=== PATIENT | female | born 1950 | race Caucasian/White ===

== ENCOUNTER 2019-01-10 09:33 | Inpatient (IN) | payer OTHER ==
[2019-01-10] MEDS ORDERED: NS 1,000 ML IV ONE ×3 (09:46→12:00)
--- NOTE | 2019-01-10 09:51 | EDPHY ---
H & P Time Seen by Provider: 01/10/19 09:35 HPI/ROS: CHIEF COMPLAINT: Altered mental status HISTORY OF PRESENT ILLNESS: 68-year-old female presents to the emergency department by ambulance with altered mental status. The patient is here visiting from [place], [place] with her sister who is here for a conference since Monday and the sister noted yesterday that she was not eating much and acting confused. The patient is a known insulin-dependent diabetic since the age of 22. The patient is complaining of feeling nauseous and was feeling chilled. The sister noted that she was confused yesterday and this continued this morning. No reports of vomiting or diarrhea. No reported fever. Patient denies pain in her chest or difficulty breathing. She is feeling chilled. Denies abdominal pain. No reported trauma. Sister also notes that 4 months ago she had an episode where she went to the hospital where "both sides of her brain were not communicating".. No reports of stroke. REVIEW OF SYSTEMS: Constitutional: No fever, no chills. Eyes: No double or blurry vision. ENT: No sore throat. Respiratory: No cough, no shortness of breath. Cardiac: No chest pain. Gastrointestinal: Nausea. No abdominal pain, vomiting or diarrhea. Genitourinary: No dysuria. Musculoskeletal: No neck or back pain. Skin: No rashes. Neurological: No headache. (Kathie Lopes) Past Medical/Surgical History: Insulin dependent diabetic since age 22 (Moses,Kathie M) Social History: From [place], [place] (Moses,Kathie M) Physical Exam: General Appearance: Lethargic. Slow to answer questions. She is able to follow commands. Confused. Eyes: Pupils equal and round. Extraocular motions are all intact. ENT: Mouth: Mucous membranes moist. Respiratory: No wheezing, rhonchi, or rales, lungs are clear to auscultation. Cardiovascular: Regular rate and rhythm. Gastrointestinal: Abdomen is soft and nontender, no masses, no rebound or guarding, bowel sounds normal. Neurological: Alert and oriented x 1, cranial nerves II through XII grossly intact Skin: Warm and dry, no rashes. Musculoskeletal: Nontender to palpate along the cervical, thoracic or lumbar spine. Neck is supple. Extremities: Full range of motion and no peripheral edema. Psychiatric: Patient is oriented X 1, there is no agitation. (Kathie Lopes) Constitutional: Initial Vital Signs Temperature (C) 36.6 C 01/10/19 09:35 Heart Rate 89 01/10/19 09:35 Respiratory Rate 20 01/10/19 09:35 Blood Pressure 128/60 H 01/10/19 09:35 O2 Sat (%) 97 01/10/19 09:35 O2 Delivery Mode Room Air Allergies/Adverse Reactions: No Known Allergies Allergy (Unverified 01/10/19 09:46) Home Medications: Medication Instructions Recorded Acetaminophen [Tylenol 325mg (*)] 650 mg PO Q4 PRN 01/10/19 Alendronate Sodium [Fosamax 70 MG 70 mg PO Q7D@07 01/10/19 (*)] Calcium Carb W/Vit D [Calcium Carb 500 mg PO BID 01/10/19 W/Vit D 500/200 (*)] Escitalopram Oxalate [Lexapro] 5 mg PO DAILY 01/10/19 Insulin Glargine [Lantus] 15 unit SC DAILY 01/10/19 Insulin Lispro [humALOG LISPRO 100 3 unit SC TIDMEAL 01/10/19 units/ml (*)] Lactulose [Enulose] 20 gm PO TID 01/10/19 Levothyroxine [Synthroid 112 mcg 112 mcg PO DAILY06 01/10/19 (*)] Lisinopril [Zestril 5 mg (*)] 5 mg PO DAILY 01/10/19 Memantine HCl [Namenda 5 mg (*)] 5 mg PO BID 01/10/19 levETIRAcetam [Keppra 500 mg (*)] 500 mg PO BID 01/10/19 Medical Decision Making - Diagnostics EKG Interpretation: EKG: Complete interpretation has been separately recorded in the [facility] archive. Summary impression: Sinus rhythm, rate 80, nonspecific ST T wave changes noted. No QRS widening or tachycardia noted (Alexx Childs) Imaging Results: Imaging Impressions Head CT 01/10/19 10:29 Impression: Mild age-related features, with no acute intracranial abnormality identified on this unenhanced CT evaluation. If there is further clinical concern regarding the patient's symptoms, MR imaging is suggested, if not otherwise contraindicated. Findings were discussed with Alexx Childs MD at 12:03, on 01/10/2019. ED Course/Re-evaluation: 68-year-old female presents to the emergency department with altered mental status. The patient has a history of insulin-dependent diabetes in is not clear the last time she took a medication. Vital signs are stable. She is afebrile. Not tachycardic. Not hypotensive. No signs of sepsis. I-STAT reveals glucose of over 700, CO2 of 9, sodium of 125, potassium 6.1 The case was discussed with Dr. Childs, secondary supervising physician, who also evaluated the patient and or laboratory studies. The patient will be admitted to the ICU. Patient's sister, Maris, was at bedside. She understands the patient will be admitted to the ICU. She does also states that the patient has DKA "multiple times" over last few years. (Kathie Lopes) Differential Diagnosis: Altered mental status including but not limited to diabetic ketoacidosis, hyperglycemia, hypoglycemia, infectious process, electrolyte abnormality, head injury and intoxicants. (Kathie Lopes) Critical Care Time: Critical care time exclusive of procedures and exclusive of the PA's time was 45 minutes, performed by myself, Alexx Childs MD. The patient presents to the ED with diabetic ketoacidosis, severe metabolic derangements, acute renal failure and altered mental status. She required aggressive therapy in the emergency department and will require admission to the intensive care unit. (Alexx Childs) Other Provider: Independent physician documentation: I evaluated and participated in the management of the patient. I also evaluated the patient independently. My co-signature indicates that I have reviewed this chart and I agree with the findings and plan of care as documented. My personal H&P findings include: Patient presents to the ED with hyperglycemia and altered mental status. She is currently visiting her sister in the area. It is uncertain if she has used her insulin at all over the past 2 days. The patient is confused and somewhat encephalopathic. She is unable to provide much history. There has been no history of fever, cough or infectious symptoms. Physical exam: General: Frail female, clinically dehydrated, confused Eyes: Pupils equal and round no pallor or injection ENT, Mouth: Co topic, dry mucous membranes Respiratory: Slight tachypnea Cardiovascular: Regular rate and rhythm Gastrointestinal: Abdomen is soft and nontender, no masses, bowel sounds normal Neurological: Alert and oriented x2, 5/5 strength noted all 4 extremities Skin: Warm and dry, no rashes Musculoskeletal: Neck is supple nontender Extremities: symmetrical, full range of motion ED course: Patient arrives in diabetic ketoacidosis with a pH is 7.06 and a glucose over 1000. The patient received the diabetic ketoacidosis protocol in the emergency department. She has received IV fluid rehydration. Patient is also noted to have acute renal failure. She has mild hyperkalemia. There has been no history of a fall or trauma however a noncontrast head CT scan will be ordered in the setting of her altered mental status. The patient will require admission to the intensive care unit. She will be admitted by the hospitalist service. (Alexx Childs) - Data Points Laboratory Results: Laboratory Results 01/10/19 09:35 01/10/19 09:35 01/10/19 01/10/19 01/10/19 10:10 09:44 09:35 WBC RBC Hgb POC Hgb 10.9 gm/dL L gm/dL (12.6-16.3) Hct POC Hct 32 % L % (38-47) MCV MCH MCHC RDW Plt Count MPV Neut % (Auto) Lymph % (Auto) Creek % (Auto) Eos % (Auto) Baso % (Auto) Nucleat RBC Rel Count Absolute Neuts (auto) Absolute Lymphs (auto) Absolute Monos (auto) Absolute Eos (auto) Absolute Basos (auto) Absolute Nucleated RBC Immature Gran % Seg Neutrophils % Band Neutrophils % Lymphocytes % Monocytes % Eosinophils % Basophils % Metamyelocytes % Myelocytes % Promyelocytes % Blast Cells % Immature Gran # Absolute Seg Neuts Absolute Band Neuts Absolute Lymphocytes Absolute Monocytes Absolute Eosinophils Absolute Basophils Absolute Metamyelocyte Absolute Myelocytes Absolute Promyelocytes Absolute Plasma Cells Nucleated RBCs Absolute Blast Cells Plasma Cells % Platelet Estimate Oval Macrocytes Puncture Site VENOUS Patient Temperature 37.0 DEGREES DEGREES VBG pH 7.08 L (7.31-7.42) VBG HCO3 7 mEQ/L L mEQ/L (22-26) VBG Total CO2 7 mEq/L L mEq/L (21-27) VBG O2 Saturation 95 % H % (65-75) VBG Base Excess -21.9 mEq/L L mEq/L (-2.5-2.5) Mixed VBG pCO2 24 mmHg L mmHg (40-44) Mixed VBG pO2 97 mmHG H mmHG (35-40) POC Sodium 125 mEq/L L mEq/L (135-145) Sodium 127 mEq/L L mEq/L (135-145) POC Potassium 6.1 mEq/L H mEq/L (3.3-5.0) Potassium 6.5 mEq/L H* mEq/L (3.5-5.2) POC Chloride 94 mEq/L L mEq/L (97-110) Chloride 90 mEq/L L mEq/L (97-110) Carbon Dioxide 7 mEq/l L* mEq/l (22-31) POC Total CO2 9 mEq/L L* mEq/L (22-31) Anion Gap 30 mEq/L H mEq/L (6-14) POC BUN 70 mg/dL H mg/dL (7-23) BUN 59 mg/dL H mg/dL (7-23) Creatinine 2.5 mg/dL H mg/dL (0.6-1.0) POC Creatinine 2.4 mg/dL H mg/dL (0.6-1.0) Estimated GFR 19 Glucose 1064 mg/dL H* mg/dL (70-100) POC Glucose > 700 mg/dL H* mg/dL (70-100) Calcium 9.2 mg/dL mg/dL (8.5-10.4) Beta-Hydroxybutyrate 12.70 mmol/L H mmol/L (0.02-0.27) 01/10/19 09:35 WBC 9.59 10^3/uL H 10^3/uL (3.80-9.50) RBC 2.87 10^6/uL L 10^6/uL (4.18-5.33) Hgb 9.3 g/dL L g/dL (12.6-16.3) POC Hgb Hct 31.0 % L % (38.0-47.0) POC Hct MCV 108.0 fL H fL (81.5-99.8) MCH 32.4 pg pg (27.9-34.1) MCHC 30.0 g/dL L g/dL (32.4-36.7) RDW 12.7 % % (11.5-15.2) Plt Count 194 10^3/uL 10^3/uL (150-400) MPV 12.0 fL H fL (8.7-11.7) Neut % (Auto) Not Reported Lymph % (Auto) Not Reported Creek % (Auto) Not Reported Eos % (Auto) Not Reported Baso % (Auto) Not Reported Nucleat RBC Rel Count Not Reported Absolute Neuts (auto) Not Reported Absolute Lymphs (auto) Not Reported Absolute Monos (auto) Not Reported Absolute Eos (auto) Not Reported Absolute Basos (auto) Not Reported Absolute Nucleated RBC Not Reported Immature Gran % Not Reported Seg Neutrophils % 78.8 % % Band Neutrophils % 3.0 % % Lymphocytes % 10.1 % % Monocytes % 6.1 % % Eosinophils % 0.0 % % Basophils % 0.0 % % Metamyelocytes % 1.0 % % Myelocytes % 1.0 % % Promyelocytes % 0.0 % % Blast Cells % 0.0 % % Immature Gran # Not Reported Absolute Seg Neuts 7.56 10^3/uL H 10^3/uL (1.70-6.50) Absolute Band Neuts 0.29 10^3/uL 10^3/uL (0.00-0.70) Absolute Lymphocytes 0.97 10^3/uL L 10^3/uL (1.00-3.00) Absolute Monocytes 0.58 10^3/uL 10^3/uL (0.30-0.80) Absolute Eosinophils 0.00 10^3/uL L 10^3/uL (0.03-0.40) Absolute Basophils 0.00 10^3/uL L 10^3/uL (0.02-0.10) Absolute Metamyelocyte 0.10 10^3/mL H 10^3/mL (0.00-0.00) Absolute Myelocytes 0.10 10^3/mL H 10^3/mL (0.00-0.00) Absolute Promyelocytes 0.00 10^3/uL 10^3/uL (0.00-0.00) Absolute Plasma Cells 0.00 10^3/uL 10^3/uL (0.00-0.00) Nucleated RBCs 0 /100 WBC /100 WBC (0-0) Absolute Blast Cells 0.00 10^3/uL 10^3/uL (0.00-0.00) Plasma Cells % 0.0 % % Platelet Estimate ADEQUATE (ADEQ) Oval Macrocytes 1+ H Puncture Site Patient Temperature VBG pH VBG HCO3 VBG Total CO2 VBG O2 Saturation VBG Base Excess Mixed VBG pCO2 Mixed VBG pO2 POC Sodium Sodium POC Potassium Potassium POC Chloride Chloride Carbon Dioxide POC Total CO2 Anion Gap POC BUN BUN Creatinine POC Creatinine Estimated GFR Glucose POC Glucose Calcium Beta-Hydroxybutyrate Medications Given: Heparin Sodium (Porcine) (Heparin Sc Injection) 5,000 unit SC Q8 ANAYA Stop: 07/09/19 13:59 Last Admin: 01/10/19 14:17 Dose: 5,000 unit Sodium Chloride (Ns) 1,000 mls @ 0 mls/hr IV CONT ANAYA PRN Reason: As Directed Stop: 07/09/19 14:59 Last Admin: 01/10/19 15:18 Dose: 1,000 mls Levetiracetam (Keppra (Premix)) 100 mls @ 400 mls/hr IV Q12HRS [facility] Stop: 07/09/19 15:14 Last Admin: 01/10/19 15:17 Dose: 100 mls Discontinued Medications Sodium Chloride (Ns) 1,000 mls @ 0 mls/hr IV EDNOW ONE; Wide Open PRN Reason: Protocol Stop: 01/10/19 09:47 Last Admin: 01/10/19 09:54 Dose: 1,000 mls Insulin Human Regular 100 unit / Miscellaneous Medication 1 ea/ Sodium Chloride 101 mls @ 0 mls/hr IV EDNOW ONE; Per Protocol PRN Reason: Protocol Stop: 01/10/19 10:33 Last Admin: 01/10/19 11:11 Dose: 101 mls Sodium Chloride (Ns) 1,000 mls @ 0 mls/hr IV EDNOW ONE; Wide Open PRN Reason: Protocol Stop: 01/10/19 11:31 Last Admin: 01/10/19 11:34 Dose: 1,000 mls Sodium Chloride (Ns) 1,000 mls @ 1,000 mls/hr IV ONCE ONE Stop: 01/10/19 12:59 Last Admin: 01/10/19 13:56 Dose: Not Given Sodium Chloride (Ns) 500 mls @ 500 mls/hr IV ONCE ONE Stop: 01/10/19 13:59 Last Admin: 01/10/19 13:15 Dose: 500 mls Sodium Chloride (Ns) 500 mls @ 500 mls/hr IV ONCE ONE Stop: 01/10/19 14:59 Last Admin: 01/10/19 14:26 Dose: 500 mls Miscellaneous Information (Message To Rn) 1 ea MISC ONCE ONE Stop: 01/10/19 11:01 Last Admin: 01/10/19 13:56 Dose: Not Given Point of Care Test Results: Chemistry 01/10/19 09:44 POC Sodium 125 mEq/L L mEq/L (135-145) POC Potassium 6.1 mEq/L H mEq/L (3.3-5.0) POC Chloride 94 mEq/L L mEq/L (97-110) POC Total CO2 9 mEq/L L* mEq/L (22-31) POC BUN 70 mg/dL H mg/dL (7-23) POC Creatinine 2.4 mg/dL H mg/dL (0.6-1.0) POC Glucose > 700 mg/dL H* mg/dL (70-100) ISTAT H&H 01/10/19 09:44 POC Hgb 10.9 gm/dL L gm/dL (12.6-16.3) POC Hct 32 % L % (38-47) Departure - Departure Disposition: [facility] Acute Clinical Impression: Hyponatremia, Dehydration Diabetic ketoacidosis Qualifiers: Diabetes mellitus type: type 1 Acute renal failure Qualifiers: Acute renal failure type: unspecified Qualified Code(s): N17.9 - Acute kidney failure, unspecified Condition: Critical
[2019-01-10 09:54] LABS: PLATELET COUNT 194 10^3/uL (150-400)
[2019-01-10] MEDS ORDERED: INSULIN REGULAR HUMAN 100 UNIT, COSIGN. REQUIRED 1 EA in NS 100 ML IV ONE (10:32)
[2019-01-10] MEDS ORDERED: ONDANSETRON DISINTEGRATING 4 MG TAB PO PRN (10:55)
[2019-01-10] MEDS ORDERED: ACETAMINOPHEN 325 MG TAB PO PRN (10:55)
[2019-01-10] MEDS ORDERED: ONDANSETRON 4 MG/2 ML VIAL IVP PRN (10:55)
[2019-01-10] MEDS ORDERED: D10W 1,000 ML IV PRN (11:00)
[2019-01-10] MEDS ORDERED: INSULIN REGULAR HUMAN 100 UNIT in NS 100 ML IV SCH (11:00)
[2019-01-10] MEDS ORDERED: RN:ENTER POTASSIUM ICU PROTOCOL ON WORKLIST MISC ONE (11:00)
--- NOTE | 2019-01-10 11:40 | CPEKG ---
Test Reason : OPEN Blood Pressure : / mmHG Vent. Rate : 080 BPM Atrial Rate : 080 BPM P-R Int : 193 ms QRS Dur : 091 ms QT Int : 388 ms P-R-T Axes : 000 070 031 degrees QTc Int : 448 ms Sinus rhythm Borderline ST depression, inferior leads Confirmed by Alexx Childs ([id number]) on 01/10/2019 11:40:20 AM Referred By: Donald Kolb Confirmed By:Alexx Childs
--- NOTE | 2019-01-10 12:24 | PDGENHP ---
History and Physical - Chief Complaint High blood glucose - History of Present Illness Patient is a 68-year-old female with past medical history of type 1 diabetes and hypertension who presented to the emergency room with concerns of high blood glucose. She is visiting from [facility] and said that about 2 days ago she started developing abdominal pain along with nausea and vomiting. This morning she checked her blood glucose noted was extremely high and had not been taking her insulin which prompted her to come to the emergency room. She says that she has been not able to take anything to eat or drink for 2 days and has been having constant nausea and vomiting. She denied any bloody or black emesis. She denied any diarrhea or black or bloody stools. She denied any fevers, chills. She thinks she last took her insulin yesterday morning. History Information - Allergies/Home Medication List Allergies/Adverse Reactions: No Known Allergies Allergy (Unverified 01/10/19 09:46) Home Medications: Basaglar Kwikpen U-100 01/10/19 [Last Taken Unknown] Novolin 70-30 Flexpen 01/10/19 [Last Taken Unknown] I have personally reviewed and updated: family history, medical history, social history, surgical history - Past Medical History diabetes type 1, hypertension - Surgical History Reports: no pertinent surgical hx - Family History Positive for: non-pertinent - Social History Smoking Status: Never smoked Review of Systems Review of Systems: ROS: 10pt was reviewed & negative except for what was stated in HPI & below Physical Exam Physical Exam: Temp Pulse Resp BP Pulse Ox 36.5 C 78 18 128/61 H 91 L 01/10/19 12:08 01/10/19 12:08 01/10/19 12:08 01/10/19 12:08 01/10/19 12:08 Constitutional: no apparent distress, appears nourished, not in pain Eyes: PERRL, anicteric sclera, EOMI Ears, Nose, Mouth, Throat: moist mucous membranes, hearing normal, ears appear normal, no oral mucosal ulcers Cardiovascular: regular rate and rhythym, no murmur, rub, or gallop, No edema Respiratory: no respiratory distress, no rales or rhonchi, clear to auscultation Gastrointestinal: normoactive bowel sounds, soft, non-tender abdomen, no palpable masses Genitourinary: no bladder fullness, no bladder tenderness Skin: warm, normal color, no rashes or abrasions, no fluctuance, no induration, No mottled Musculoskeletal: full muscle strength, no muscle tenderness, normal joint ROM, no joint effusions, generalized weakness Neurologic: AAOx3 Psychiatric: interacting appropriately, not anxious, not encephalopathic, thought process linear Lymph, Heme, Immunologic: no cervical LAD, no supraclavicular LAD Lab Data & Imaging Review 01/10/19 09:35 01/10/19 09:35 WBC 9.59 10^3/uL (3.80-9.50) H 01/10/19 09:35 RBC 2.87 10^6/uL (4.18-5.33) L 01/10/19 09:35 Hgb 9.3 g/dL (12.6-16.3) L 01/10/19 09:35 POC Hgb 9.2 gm/dL (12.6-16.3) L 01/10/19 11:28 Hct 31.0 % (38.0-47.0) L 01/10/19 09:35 POC Hct 27 % (38-47) L 01/10/19 11:28 MCV 108.0 fL (81.5-99.8) H 01/10/19 09:35 MCH 32.4 pg (27.9-34.1) 01/10/19 09:35 MCHC 30.0 g/dL (32.4-36.7) L 01/10/19 09:35 RDW 12.7 % (11.5-15.2) 01/10/19 09:35 Plt Count 194 10^3/uL (150-400) 01/10/19 09:35 MPV 12.0 fL (8.7-11.7) H 01/10/19 09:35 Neut % (Auto) Not Reported 01/10/19 09:35 Lymph % (Auto) Not Reported 01/10/19 09:35 Thayer % (Auto) Not Reported 01/10/19 09:35 Eos % (Auto) Not Reported 01/10/19 09:35 Baso % (Auto) Not Reported 01/10/19 09:35 Nucleat RBC Rel Count Not Reported 01/10/19 09:35 Absolute Neuts (auto) Not Reported 01/10/19 09:35 Absolute Lymphs (auto) Not Reported 01/10/19 09:35 Absolute Monos (auto) Not Reported 01/10/19 09:35 Absolute Eos (auto) Not Reported 01/10/19 09:35 Absolute Basos (auto) Not Reported 01/10/19 09:35 Absolute Nucleated RBC Not Reported 01/10/19 09:35 Immature Gran % Not Reported 01/10/19 09:35 Seg Neutrophils % 78.8 % 01/10/19 09:35 Band Neutrophils % 3.0 % 01/10/19 09:35 Lymphocytes % 10.1 % 01/10/19 09:35 Monocytes % 6.1 % 01/10/19 09:35 Eosinophils % 0.0 % 01/10/19 09:35 Basophils % 0.0 % 01/10/19 09:35 Metamyelocytes % 1.0 % 01/10/19 09:35 Myelocytes % 1.0 % 01/10/19 09:35 Promyelocytes % 0.0 % 01/10/19 09:35 Blast Cells % 0.0 % 01/10/19 09:35 Immature Gran # Not Reported 01/10/19 09:35 Absolute Seg Neuts 7.56 10^3/uL (1.70-6.50) H 01/10/19 09:35 Absolute Band Neuts 0.29 10^3/uL (0.00-0.70) 01/10/19 09:35 Absolute Lymphocytes 0.97 10^3/uL (1.00-3.00) L 01/10/19 09:35 Absolute Monocytes 0.58 10^3/uL (0.30-0.80) 01/10/19 09:35 Absolute Eosinophils 0.00 10^3/uL (0.03-0.40) L 01/10/19 09:35 Absolute Basophils 0.00 10^3/uL (0.02-0.10) L 01/10/19 09:35 Absolute Metamyelocyte 0.10 10^3/mL (0.00-0.00) H 01/10/19 09:35 Absolute Myelocytes 0.10 10^3/mL (0.00-0.00) H 01/10/19 09:35 Absolute Promyelocytes 0.00 10^3/uL (0.00-0.00) 01/10/19 09:35 Absolute Plasma Cells 0.00 10^3/uL (0.00-0.00) 01/10/19 09:35 Nucleated RBCs 0 /100 WBC (0-0) 01/10/19 09:35 Absolute Blast Cells 0.00 10^3/uL (0.00-0.00) 01/10/19 09:35 Plasma Cells % 0.0 % 01/10/19 09:35 Platelet Estimate ADEQUATE (ADEQ) 01/10/19 09:35 Oval Macrocytes 1+ H 01/10/19 09:35 Puncture Site VENOUS 01/10/19 10:46 Patient Temperature 37.0 DEGREES 01/10/19 10:46 VBG pH 7.06 (7.31-7.42) L 01/10/19 10:46 VBG HCO3 8 mEQ/L (22-26) L 01/10/19 10:46 VBG Total CO2 8 mEq/L (21-27) L 01/10/19 10:46 VBG O2 Saturation 79 % (65-75) H 01/10/19 10:46 VBG Base Excess -21.5 mEq/L (-2.5-2.5) L 01/10/19 10:46 Mixed VBG pCO2 28 mmHg (40-44) L 01/10/19 10:46 Mixed VBG pO2 53 mmHG (35-40) H 01/10/19 10:46 POC Sodium 129 mEq/L (135-145) L 01/10/19 11:28 Sodium 127 mEq/L (135-145) L 01/10/19 09:35 POC Potassium 5.8 mEq/L (3.3-5.0) H 01/10/19 11:28 Potassium 6.5 mEq/L (3.5-5.2) H* 01/10/19 09:35 POC Chloride 100 mEq/L (97-110) 01/10/19 11:28 Chloride 90 mEq/L (97-110) L 01/10/19 09:35 Carbon Dioxide 7 mEq/l (22-31) L* 01/10/19 09:35 POC Total CO2 11 mEq/L (22-31) L 01/10/19 11:28 Anion Gap 30 mEq/L (6-14) H 01/10/19 09:35 POC BUN 60 mg/dL (7-23) H 01/10/19 11:28 BUN 59 mg/dL (7-23) H 01/10/19 09:35 Creatinine 2.5 mg/dL (0.6-1.0) H 01/10/19 09:35 POC Creatinine 2.1 mg/dL (0.6-1.0) H 01/10/19 11:28 Estimated GFR 19 01/10/19 09:35 Glucose 1064 mg/dL (70-100) H* 01/10/19 09:35 POC Glucose > 700 mg/dL (70-100) H* 01/10/19 11:28 Calcium 9.2 mg/dL (8.5-10.4) 01/10/19 09:35 Beta-Hydroxybutyrate 9.12 mmol/L (0.02-0.27) H 01/10/19 10:46 Assessment & Plan Assessment: 68-year-old female with past medical history of type 1 diabetes admitted with diabetic ketoacidosis. Diabetic ketoacidosis (Acute)- pH 7.06 with blood sugar over a 1000 on admission. Beta hydroxybutyrate elevated over 9. -DKA order set -aggressive fluids -insulin drip -repeat ABG -potassium repletion -NPO with sips Acute renal failure (Acute)- likely prerenal azotemia in the setting of DKA and dehydration. Currently getting aggressive intravenous saline. Will repeat renal function in the morning. Hyponatremia (Acute)- pseudohyponatremia in the setting of hyperglycemia. Sodium corrects to normal when adjusted for hyperglycemia. Hypertension- currently normotensive. PRN hydralazine as needed. Type 1 diabetes- currently in diabetic ketoacidosis. Patient takes Novolin and Basaglar but can't remember the doses. AV malformation- per sister patient has an AV malformation. On keppra 500 mg BID. will continue IV keppra 500mg BID. PPX- SCDs, Heparin Fluids- IVNS lytes- per protocol Nutrition - NPO Cor- Full Dispo- ICU for DKA I spent 50 minutes of critical care time on the management of this patient.
[2019-01-10] MEDS ORDERED: NS 500 ML IV ONE ×2 (13:00→14:00)
--- NOTE | 2019-01-10 13:20 | PDMN ---
Medical Necessity Medical necessity: [facility] M130 diabetes: : A-2 days; INPT for hyperglycemia glucose > 1000, beta hydroxybutyrate 12.7, VBG pH 7.08, pt with N/V, abd pain , anticipate > 2 MN ongoing med nec care- further monitoring , eval and tx.
[2019-01-10] MEDS: HEPARIN 5,000 UNIT/0.5 ML INJ SC SCH ×2 (14:17→21:31)
[2019-01-10] MEDS: levETIRAcetam 500MG/NACL 100 ML IV SCH ×2 (15:17→20:29)
[2019-01-10] MEDS: NS 1,000 ML IV SCH ×2 (15:18→18:03)
[2019-01-10] MEDS: D10W 1,000 ML IV SCH (20:29)
[2019-01-11] MEDS: INSULIN GLARGINE 100 UNITS/ML UNIT SC SCH ×2 (00:03→21:04)
[2019-01-11] MEDS: D50W 25 GM/50 ML SYR IVP PRN ×2 (02:42→06:06)
[2019-01-11] MEDS: NS 1,000 ML IV SCH (03:34)
[2019-01-11] MEDS: HEPARIN 5,000 UNIT/0.5 ML INJ SC SCH ×3 (06:06→21:47)
[2019-01-11 06:28] LABS: PLATELET COUNT 160 10^3/uL (150-400)
[2019-01-11] MEDS: INSULIN LISPRO 100 UNIT/ML SC SCH ×3 (10:25→18:36)
[2019-01-11] MEDS ORDERED: LORazepam 2 MG/ML INJ ONE (11:46)
[2019-01-11] MEDS: D10W 1,000 ML IV SCH (11:51)
--- NOTE | 2019-01-11 12:39 | ASMTCMCOM ---
CM Note CM Note Notes: Pt discussed in rounds and Chart reviewed. Pt is a 68year old admitted with Diabetic Ketoacidosis, Hyponatremia and renal failure. Pt was in [place] 2 days ago when she developed nausea, vomiting and some abdominal pain. Pt has some confusion and is pulling tubes today. CM available for needs. PLAN: TBD Date Signed: 01/11/2019 12:38 PM Electronically Signed By:Izabella Bone
[2019-01-11] MEDS ORDERED: LORazepam 2 MG/ML INJ IVP ONE (12:45)
[2019-01-11] MEDS: levETIRAcetam 500MG/NACL 100 ML IV SCH ×2 (12:49→21:46)
--- NOTE | 2019-01-11 14:02 | HOSPPROG ---
Hospitalist Progress Note Assessment/Plan: Assessment: 68-year-old female with past medical history of type 1 diabetes admitted with diabetic ketoacidosis. Diabetic ketoacidosis (Acute)- PH normalized, gap closed, sugars normalized. Patients sister reports hx of being a brittle diabetic. Patient was given long acting overnight and now is intermittently hypoglycemic. -restart D10 -cont SSI -frequent glucose checks. Aphasia- patient with confusion and aphasia this am. Persisted despite normoglycemia and resolution of electrolyte abnormalities. CTH with possible subacute stroke per radiology, who recommends obtaining MRI for further eval of hx of AVM and possible CVA. Acute renal failure (Acute)- likely prerenal azotemia in the setting of DKA and dehydration. responded well to fluids. creatinine trending down. cont IVF and monitor renal function. Hyponatremia (Acute)- pseudohyponatremia in the setting of hyperglycemia. Corrected overnight Hypertension- currently normotensive. PRN hydralazine as needed. Type 1 diabetes-Takes lantus at home. Holding in setting of hypoglycemia. AV malformation- per sister patient has an AV malformation. On keppra 500 mg BID. will continue IV keppra 500mg BID. cont PPX- SCDs, Heparin Fluids- IVNS lytes- per protocol Nutrition - NPO Cor- Full Dispo- SDU for DKA Subjective: No pain, clearly confused. Objective: Vital Signs Temp Pulse Resp BP Pulse Ox 37.4 C 61 20 142/77 H 94 01/11/19 06:00 01/11/19 12:00 01/11/19 12:00 01/11/19 12:00 01/11/19 12:00 Laboratory Results 01/11/19 06:00 01/11/19 04:00 01/10/19 01/11/19 01/12/19 05:59 05:59 05:59 Intake Total 4875 Output Total 2190 Balance 2685 - Physical Exam Constitutional: no apparent distress, appears nourished, not in pain Eyes: PERRL, anicteric sclera, EOMI Ears, Nose, Mouth, Throat: moist mucous membranes, hearing normal, ears appear normal, no oral mucosal ulcers Cardiovascular: regular rate and rhythym, no murmur, rub, or gallop Respiratory: no respiratory distress, no rales or rhonchi, clear to auscultation Gastrointestinal: normoactive bowel sounds, soft, non-tender abdomen, no palpable masses Genitourinary: no bladder fullness, no bladder tenderness, no renal bruits Skin: no rashes or abrasions, no fluctuance, no induration Musculoskeletal: generalized weakness Neurologic: other (Thinks she is in [place], thinks it is 1998, knows her name. Aphasia present. ) Psychiatric: encephalopathic Lymph, Heme, Immunologic: no cervical LAD ICD10 Worksheet Patient Problems: Problems Problem Status Onset Acute renal failure Acute Dehydration Acute Diabetic ketoacidosis Acute Hyponatremia Acute
[2019-01-11] MEDS ORDERED: GADOBUTROL 10 ML VIAL IVP ONE (14:32)
--- NOTE | 2019-01-11 17:04 | NEUROPROG ---
Assessment: PHONE CONSULT NOTE: (Formal consult to follow) I was called by Dr Euceda regarding abnl BRAIN MRI - right AVM w/ positive DWI and right subacute parietal cva in patient with DKA. PLAN: - MRA head/neck w/o contrast (GFR low so will avoid CTAs) - Neurosurgery consult to review - Hold anti-platelet until pt. seen by neurosurgery and cleared to start -- in light of AVM findings - echo - ECG tele for ? Afib Objective: Vital Signs Temp Pulse Resp BP Pulse Ox 37.4 C 64 13 147/79 H 10 L 01/11/19 06:00 01/11/19 14:00 01/11/19 14:00 01/11/19 14:00 01/11/19 14:00 Laboratory Results 01/11/19 06:00 01/11/19 04:00 01/10/19 01/11/19 01/12/19 05:59 05:59 05:59 Intake Total 4875 Output Total 2190 Balance 2685 Allergies/Adverse Reactions: No Known Allergies Allergy (Unverified 01/10/19 09:46)
[2019-01-11] MEDS: LACTULOSE 20 GM/30 ML UDCUP PO SCH ×2 (18:25→21:05)
[2019-01-12] MEDS: HEPARIN 5,000 UNIT/0.5 ML INJ SC SCH (03:54)
[2019-01-12] MEDS ORDERED: hydrALAZINE 20 MG/ML VIAL IVP ONE (05:18)
--- NOTE | 2019-01-12 06:22 | GCON ---
[f rep st] CONSULTATION DATE OF CONSULTATION: 01/11/2019 CONSULTING SERVICE: Medicine. PRINT PROJECT MANAGER: Neurosurgery, Dr. Cantu. REASON FOR CONSULT: AVM and strokes. HISTORY OF PRESENT ILLNESS: The patient is a 68-year-old female with a history of type 1 diabetes an d hypertension, who presented to the emergency room with concerns for high blood glucose and diabetic ketoacidosis. She is visiting from [place], [place]. Apparently, she was visiting and 2 days ago sta rted developing abdominal pain with nausea and vomiting. She checked her glucose levels and they wer e very high, so she came into the emergency room. She has not been able to take any p.o. for a coupl e of days either. Allegedly, she is aware of a right parietal AVM that has been monitored per her re port, MRI was performed which showed small ischemic infarcts near this lesion on the right side. She claims to be doing and feeling better than she was when she came into the hospital. PAST MEDICAL HISTORY: Per HPI. Diabetes type 1, hypertension. PAST SURGICAL HISTORY: None pertinent. FAMILY HISTORY: Reviewed, not pertinent. SOCIAL HISTORY: Claims to never have smoked and denies illicit alcohol or drug abuse. CODE STATUS: Full. ALLERGIES: None. REVIEW OF SYSTEMS: Ten points reviewed, negative other than stated in the HPI. PHYSICAL EXAM: VITAL SIGNS: Afebrile at 36.5, heart rate 78, blood pressure 128/61, respiratory rat e 18, saturating 91%. NEUROLOGIC: The patient is awake, alert, oriented x3. She appears stated age . She is in no acute distress. She has normal fluent speech. She has normal cranial nerves. She f ollows all commands. Strong in all extremities. No pronator drift. Normal sensation. No abnormal reflexes. No cerebellar findings. Gait is deferred. LABS: White count 9.6, hemoglobin 9.3, platelet count 194. Sodium 127, potassium 6.5, BUN 59, creat inine 2.5, glucose 1064. IMAGING: I reviewed the patient's CTs and MRIs of the brain. It is possible that she has a cortical right parietal AVM. She does have small infarcts in a location near this AVM, but they are very sma ll. IMPRESSION AND PLAN: A 68-year-old female with a likely incidental and known right parietal arteriov enous malformation and infarcts in the right frontoparietal region in the deep matter that is unlikel y related to the arteriovenous malformation. She is also in diabetic ketoacidosis and is being treat ed for this in the ICU. At this point in time, I recommend medical management of her acute medical i ssues. She lives out of state in [place] and claims to know that she has a small arteriovenous malform ation and that it has been monitored and not treated, which I do believe is appropriate given its siz e. We will follow along, but I recommend that she be supported and then discharged back to her home where her neurosurgeon in [place] can follow up with this issue as I do not believe it is related to he r current presentation, but again we are following along. Please call with any questions or concerns . /[id number]/MODL
[2019-01-12] MEDS: INSULIN LISPRO 100 UNIT/ML SC SCH ×2 (07:50→11:48)
[2019-01-12] MEDS: levETIRAcetam 500MG/NACL 100 ML IV SCH (09:07)
--- NOTE | 2019-01-12 09:31 | SOAPPROG ---
[facility] Progress Note Assessment/Plan: Assessment: 68 yo female with known AVM and subacute infarcts admitted with DKA. Feeling better this AM. Plan: Medical mgmt. We will follow along, but likely recommend she DC to [place] and follow up with Neurosurgery there for mgmt of AVm once medical issues resolved. Neurology on board as well for stroke. DW Dr. Cantu 01/12/19 09:26 01/12/19 09:34 Subjective: Out of bed in chair. Feeling better. Confusion improved Objective: Vital Signs Temp Pulse Resp BP Pulse Ox 36.4 C 81 13 141/68 H 99 01/12/19 07:52 01/12/19 07:52 01/12/19 07:52 01/12/19 07:52 01/12/19 07:52 Laboratory Results 01/11/19 06:00 01/11/19 01/12/19 01/13/19 05:59 05:59 05:59 Intake Total 4875 1890 Output Total 2190 2500 Balance 2685 -610 Neuro: FLANAGAN to command sens +Lt No facial droop, no pronator drift. Strength =/symmetric AM Labs today still pending but POCblood sugar 446 ICD10 Worksheet Patient Problems: Problems Problem Status Onset Acute renal failure Acute Dehydration Acute Diabetic ketoacidosis Acute Hyponatremia Acute
[2019-01-12] MEDS ORDERED: ESCITALOPRAM OXALATE 10 MG TAB PO SCH (09:45)
[2019-01-12] MEDS ORDERED: LEVOTHYROXINE 112 MCG TAB PO SCH (09:45)
[2019-01-12] MEDS ORDERED: levETIRAcetam 500 MG TAB PO SCH (09:45)
[2019-01-12 10:24] VITALS: BP 101/68
[2019-01-12] MEDS ORDERED: INSULIN GLARGINE 100 UNITS/ML UNIT SC SCH (10:30)
[2019-01-12] MEDS: LACTULOSE 20 GM/30 ML UDCUP PO SCH (11:11)
--- NOTE | 2019-01-12 11:23 | PDDCSUM ---
Discharge Summary Discharge Summary: Dates of service 01/10-01/12/19 Consultations: neurology, neurosurgery Procedures performed: head ct, brain MRI, head/neck MRA Hospital course by problem: 68-year-old female with past medical history of type 1 diabetes admitted with diabetic ketoacidosis. Diabetic ketoacidosis (Acute) DM1- PH normalized, gap closed, sugars normalized. Patients sister reports hx of being a brittle diabetic. They have a lot of concerns about her ongoing DM care and recommended that they establish care with endocrinology after return home to [place]. subacute CVA: with head/neck MRA unremarkable, no intracardiac thrombus on echo , no a fib on tele. Patient with an episode in the past months that may have correlated with these findings. Neurology recommending f/u with neurology in [place] as well as 30 day groundwater monitoring technician in [place]. AVM: this is a known condition, neurosurgery here felt continued monitoring appropriate and ok for f/u in [place] Acute renal failure (Acute)- likely prerenal azotemia in the setting of DKA and dehydration. responded well to fluids. creatinine trending down. cont IVF and monitor renal function. Hyponatremia (Acute)- pseudohyponatremia in the setting of hyperglycemia. Corrected overnight Hypertension- currently normotensive. PRN hydralazine as needed. Cor- Full dc home, they plan to return to [place] soon f/u with PCP, neurology, cardiology for 30 day heart monitor and neurosurgery for ongoing evaluation of AVM > 35 min spent in dc more than half in coordination of care and counseling patient and her sister regarding f/u care plans
--- NOTE | 2019-01-12 11:29 | ECHO ---
[email or web address] [address] [address] Main: [phone] Echocardiography Examination Transthoracic Name: DYLAN RYAN MR#: [id number] Study Date: 01/12/2019 Study Time: 09:46 AM Date of : 1950 Age: 68 year(s) Height: 162.6 cm (64 in.) Weight: 59.42 kg (131 lb.) BSA: 1.63 m2 Gender: Female Examination: Echo Contrast: Image Quality: Good Rhythm: Normal sinus rhythm Heart Rate: 74 bpm BP: 121 mmHg/68 mmHg Indication: Cerebrovascular: prior CVA Procedure Staff Referring Physician: Cook Vacuum Kettle: Sal Washburn RDCS Reading Physician: Naveed Chung MD Requesting Provider: Ordering Physician: Donald Kolb Indication: Cerebrovascular: prior CVA Measurements Chambers AV/MV Label Value Normal Value Label Value Normal Value EF lower range (%) 60 % AV PGmax 12 mmHg EF upper range (%) 65 % AV PGmean 6 mmHg IVSd, 2D 0.8 cm (0.6cm - 1.1cm) AV Vmax 1.75 m/s LVDd, 2D 3.5 cm (3.9cm - 5.3cm) ZORAN (continuity eq. 1.3 cm2 LVDs, 2D 2.3 cm (2.1cm - 4cm) Vmax) LVEF, 2D 62 % (54% - 74%) ZORAN D (continuity eq. 1 cm2 LVOT PGmax 3 mmHg VTI) LVOT PGmean 1 mmHg MV A Vmax 1 m/s LVOT Vmax 0.81 m/s (0.7m/s - 1.1m/s) MV E' lateral 0.04 m/s LVOT Vmean 0.44 m/s MV E' mean 0.04 m/s LVOTd 1.9 cm (1.8cm - 2cm) MV E' septal 0.05 m/s LVPWd, 2D 0.9 cm MV E Vmax 0.84 m/s RVDd, 2D 1.2 cm (1.9cm - 3.8cm) MV E/A 0.84 TAPSE 2.2 cm MV E/E' lateral 19.2 LA Area, A2C 15 cm2 (0cm2 - 20cm2) MV E/E' mean 18.67 LA Volume, A2C 39 ml (22ml - 52ml) MV E/E' septal 18 (0.45 - 1.25) LA Volume, A4C 20 ml (22ml - 52ml) TV/PV LAESV index, MOD2 23.9 ml/m2 Label Value Normal Value RA Area 12.4 cm2 RA Pressure 5 mmHg Patient: DYLAN RYAN Study Date: 01/12/2019 Page 1 of 3 09:46 AM Additional Vessels RVSP 28 mmHg Label Value Normal Value TR Pmax 23 mmHg AoRoot, MM 2.8 cm (2.2cm - 3.7cm) TR Vmax 2.42 m/s Conclusions Left Ventricle: Left ventricle is normal in size. EF range is estimated at 60 % - 65 %. Right Ventricle: Normal size right ventricle. Mitral Valve: Trivial to mild mitral regurgitation. Aortic Valve: The aortic valve is structurally normal and trileaflet. Pericardium: No pericardial effusion. Findings no source of emboli noted. Left Ventricle: Left ventricle is normal in size. The ejection fraction, measured by 2D, is 62 %. EF range is estimated at 60 % - 65 %. Left ventricle wall thickness is normal. There are no regional wall motion abnormalities. Cannot determine LAP and Diastolic Dysfunction Grade. Right Ventricle: Normal size right ventricle. The RV function appears grossly normal. Right Ventricular Measurements TAPSE is 2.20 cm. Left Atrium Measurements LAESV index, MOD2 is 23.9 ml/m2. Right Atrium: The right atrium is normal in size. Right Atrium Measurements RA Area is 12.4 cm2. Mitral Valve: Mitral valve appears structurally normal. Trivial to mild mitral regurgitation. No mitral valve stenosis. There is minimal mitral calcification. Aortic Valve: There is systolic fluttering of the aortic valve leaflets.. The aortic valve is structurally normal and trileaflet. No aortic valve regurgitation. Aortic leaflets exhibit no calcification. The aortic valve is trileaflet. Tricuspid Valve: Tricuspid valve leaflets are structurally normal. Trivial tricuspid regurgitation. There is no tricuspid calcification. Right Ventricular systolic pressure is measured at 28 mmHg. Pulmonary artery pressure normal. Pulmonic Valve: Pulmonic leaflets are structurally normal. No pulmonic valve regurgitation is evident. Aorta: The aorta is normal. The aortic root size in M-mode measures 2.8 cm. Aorta Measurements AoRoot, MM is 2.8 cm. Pericardium: Patient: DYLAN RYAN Study Date: 01/12/2019 Page 2 of 3 09:46 AM No pericardial effusion. Exam Details Procedure Ordered: Echo Procedure Status: Routine study Image Quality: Good Facility Location: Cardiac Echo 1 (No Signature Object) Patient: DYLAN RYAN Study Date: 01/12/2019 Page 3 of 3 09:46 AM [id number]
[2019-01-12] MEDS ORDERED: ASPIRIN 81 MG CHEWABLE TAB PO SCH (11:30)
[2019-01-12] MEDS ORDERED: NON-FORMULARY NEW DRUG (Lactulose [Enulose] 20 GM) PO SCH (16:00)
== END 2019-01-12 12:27 | disposition home or self-care (01) | DRG 637 ==
LOC: F2N 11:56
PROVIDERS: ADMIT Internal Medicine; ATTEND Internal Medicine
DX: E10.10 Type 1 diabetes mellitus with ketoacidosis without coma (principal); N17.9 Acute kidney failure, unspecified; Q28.2 Arteriovenous malformation of cerebral vessels; I63.9 Cerebral infarction, unspecified; E87.1 Hypo-osmolality and hyponatremia; I10 Essential (primary) hypertension; Z79.4 Long term (current) use of insulin
CPT/HCPCS: 82435-PO; 82565-PO; 82947-PO; 84132-PO; 84295-PO; 84520-PO; 85014-ER; 92610-GN; 96374; 97116-GP; 97162-GP; A9585; J0360; J1644; J1815; J1953; J2060